=== PATIENT | male | born 1960 | race Caucasian/White ===

== ENCOUNTER 2020-06-11 09:20 | Emergency (ER) | payer SELFPAY ==
[2020-06-11] MEDS ORDERED: Metoclopramide 10 MG/2 ML SDV IVPUSH ONE (09:28)
[2020-06-11] MEDS ORDERED: Aspirin 81 MG Tab.Chew PO ONE (09:28)
[2020-06-11] MEDS ORDERED: fentaNYL 100 MCG/2 ML SDV IVPUSH ONE (09:28)
[2020-06-11] MEDS ORDERED: Sodium Chloride 0.9% 1,000 ML IV SCH (09:30)
[2020-06-11] MEDS ORDERED: Nitroglycerin/D5W 25 MG/250 ML BOTTLE IV SCH (09:30)
--- NOTE | 2020-06-11 09:33 | EDM.PDOC ---
ED HPI GENERAL MEDICAL PROBLEM - General Chief Complaint: Cardiovascular Problem Stated Complaint: POSSIBLE HEART ATTACK Time Seen by Provider: 06/11/20 09:27 Source of Information: Reports: Patient History Limitations: Reports: No Limitations - History of Present Illness INITIAL COMMENTS - FREE TEXT/NARRATIVE: 60-year-old male presents to the ED with crushing central chest pain starting approximately 20 minutes prior to arrival. States he was walking up a flight of stairs when the pain came on. No known history of coronary disease. Strong family history of the same however. He is also got a [id number] history of smoking. Pain does not radiate into his jaw or shoulders. Does feel it in between his shoulder blades in his back. Has never experienced this type of t errible pain before. Rates the pain as 10 out of 10. Onset: Today, Sudden Onset Date: 06/11/20 Onset Time: 09:00 Duration: Minutes:, Constant Location: Reports: Chest Quality: Reports: Ache, Pressure (Few central chest squeezing pressure pain.) Severity: Severe Improves with: Reports: None Worsens with: Reports: None (10 out of 10) Context: Reports: Other (Spontaneous occurrence). Denies: Activity, Exercise, Lifting, Sick Contact, Trauma Associated Symptoms: Reports: Chest Pain, Loss of Appetite, Shortness of Breath. 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) Chest Pain Score (Numeric/FACES): 6 - Related Data Allergies Allergy/AdvReac Type Severity Reaction Status Date / Time No Known Allergies Allergy Verified 06/11/20 09:50 Home Meds: Home Meds Ibuprofen 600 mg PO TID 06/11/20 [History] Past Medical History Cardiovascular History: Reports: Hypertension (Has been off hypertensive medication since September of this year) Social & Family History - Tobacco Use Tobacco Use Status *Q: Current Every Day Tobacco User Tobacco Use Within Last Twelve Months: Cigarettes (1 pack/day) - Living Situation & Occupation Occupation: Employed ED ROS GENERAL - Review of Systems Review Of Systems: See Below Constitutional: Denies: Fever, Chills, Malaise, Weakness, Fatigue, Decreased Appetite, Weight Loss HEENT: Reports: No Symptoms Respiratory: Reports: Shortness of Breath, Wheezing, Cough. Denies: Pleuritic Chest Pain Cardiovascular: Reports: Chest Pain ([place] cough.), Dyspnea on Exertion. Denies: Blood Pressure Problem ( Chest pain this morning see history of present illness), Claudication, Edema, Lightheadedness, Orthopnea Endocrine: Reports: Fatigue (Sometimes.) GI/Abdominal: Reports: No Symptoms : Reports: Frequency, Other Musculoskeletal: Reports: Back Pain, Joint Pain Skin: Reports: No Symptoms (Sips neck at times) Neurological: Reports: No Symptoms Psychiatric: Reports: No Symptoms Hematologic/Lymphatic: Reports: No Symptoms ED EXAM, GENERAL - Physical Exam Exam: See Below Exam Limited By: No Limitations General Appearance: Alert, Moderate Distress (She has an obvious amount of), Other ( significant pain.) Eye Exam: Bilateral Eye: Normal Inspection, PERRL Throat/Mouth: Other. No: Normal Teeth (Pharynx is diffusely erythematous from cigarette smoking.) Head: Atraumatic, Normocephalic Neck: Normal Inspection, Supple, Non-Tender, Full Range of Motion. No: Carotid Bruit, Lymphadenopathy (L), Lymphadenopathy (R) Respiratory/Chest: No Respiratory Distress, Lungs Clear, Normal Breath Sounds, No Accessory Muscle Use Cardiovascular: Normal Peripheral Pulses, Regular Rate, Rhythm, No Edema, No Gallop, No Murmur, No Rub Peripheral Pulses: 2+: Carotid (L), Carotid (R), Posterior Tibial (L), Posterior Tibial (R), Dorsalis Pedis (L), Dorsalis Pedis (R) GI/Abdominal: Normal Bowel Sounds, Soft, Non-Tender, No Organomegaly, No Abnormal Bruit, No Mass, Pelvis Stable, Other (No surgical scars) Back Exam: Normal Inspection, Full Range of Motion. No: CVA Tenderness (L), CVA Tenderness (R) Extremities: Normal Inspection, Normal Range of Motion, Non-Tender, No Pedal Edema Neurological: Alert, Oriented, CN II-XII Intact, Normal Cognition, Normal Gait Psychiatric: Anxious Skin Exam: Warm, Dry, Intact, No Rash (They diaphoretic), Diaphoretic #2 Interpretation EKG Date: 06/11/20 Time: 10:08 Rhythm: NSR Rate (Beats/Min): 68 [place]: LAD-Left [place] Deviation (-58 degrees) P-Wave: Enlarged (Left atrial hypertrophy) QRS: Other (Q waves leads V1 V2 compared with old septal myocardial infarction. Left ventricular hypertrophy pattern.) ST-T: Other (T wave inversion V5 V6 T wave flattening in lead I and aVL nonspecific findings) EKG Interpretation Comments: Normal ECG #5 Interpretation EKG Date: 06/11/20 Time: 09:26 Rhythm: NSR Rate (Beats/Min): 72 [place]: LAD-Left [place] Deviation P-Wave: Enlarged (-56 degrees consider left atrial hypertrophy) QRS: Other (Q waves V1 and V2 compared with an old anteroseptal myocardial infarction left ventricular appear to be pattern) ST-T: Other (Wave flattening 1 and aVL) QT: Normal EKG Interpretation Comments: ECG Course - Vital Signs Last Recorded V/S: Last Vital Signs Temp 35.6 C L 06/11/20 09:20 Pulse 76 06/11/20 09:20 Resp 14 06/11/20 09:20 BP 156/118 H 06/11/20 09:20 Pulse Ox 97 06/11/20 09:20 - Orders/Labs/Meds Labs: Laboratory Tests 06/11/20 06/11/20 06/11/20 Range/Units 09:25 09:25 09:25 WBC 6.01 (4.23-9.07) K/mm3 RBC 4.77 (4.63-6.08) M/mm3 Hgb 15.2 (13.7-17.5) gm/dl Hct 47.4 (40.1-51.0) % MCV 99.4 H (79.0-92.2) fl MCH 31.9 (25.7-32.2) pg MCHC 32.1 L (32.2-35.5) g/dl RDW Std Deviation 47.6 H (35.1-43.9) fL Plt Count 193 (163-337) K/mm3 MPV 11.2 (9.4-12.3) fl Neut % (Auto) 45.0 (34.0-67.9) % Lymph % (Auto) 36.8 (21.8-53.1) % [place] % (Auto) 15.3 H (5.3-12.2) % Eos % (Auto) 2.0 (0.8-7.0) Baso % (Auto) 0.2 (0.1-1.2) % Neut # (Auto) 2.71 (1.78-5.38) K/mm3 Lymph # (Auto) 2.21 (1.32-3.57) K/mm3 [place] # (Auto) 0.92 H (0.30-0.82) K/mm3 Eos # (Auto) 0.12 (0.04-0.54) K/mm3 Baso # (Auto) 0.01 (0.01-0.08) K/mm3 Manual Slide Review Abnormal smear PT 10.6 (9.7-12.0) SECONDS INR 0.99 APTT 25.9 (21.7-31.4) SECONDS D-Dimer, Quantitative (0.19-0.50) mg/L Sodium 139 (136-145) mEq/L Potassium 4.8 (3.5-5.1) mEq/L Chloride 101 (98-107) mEq/L Carbon Dioxide 27 (21-32) mEq/L Anion Gap 15.8 H (5-15) BUN 25 H (7-18) mg/dL Creatinine 1.4 H (0.7-1.3) mg/dL Est Cr Clr Drug Dosing 54.71 mL/min Estimated GFR (MDRD) 51 (>60) mL/min BUN/Creatinine Ratio 17.9 (14-18) Glucose 92 (80-115) mg/dL Calcium 9.7 (8.5-10.1) mg/dL Magnesium 2.1 (1.8-2.4) mg/dl Total Bilirubin 0.6 (0.2-1.0) mg/dL AST 32 (15-37) U/L ALT 37 (16-63) U/L Alkaline Phosphatase 57 (46-116) U/L CK-MB (CK-2) 5.5 H (0-3.6) ng/ml Troponin I < 0.017 (0.00-0.056) ng/mL C-Reactive Protein 0.5 (<1.0) mg/dL NT-Pro-B Natriuret Pep (0-125) pg/mL Total Protein 8.1 (6.4-8.2) g/dl Albumin 4.5 (3.4-5.0) g/dl Globulin 3.6 gm/dL Albumin/Globulin Ratio 1.3 (1-2) Lipase (73-393) U/L 06/11/20 06/11/20 06/11/20 Range/Units 09:25 12:30 12:30 WBC (4.23-9.07) K/mm3 RBC (4.63-6.08) M/mm3 Hgb (13.7-17.5) gm/dl Hct (40.1-51.0) % MCV (79.0-92.2) fl MCH (25.7-32.2) pg MCHC (32.2-35.5) g/dl RDW Std Deviation (35.1-43.9) fL Plt Count (163-337) K/mm3 MPV (9.4-12.3) fl Neut % (Auto) (34.0-67.9) % Lymph % (Auto) (21.8-53.1) % [place] % (Auto) (5.3-12.2) % Eos % (Auto) (0.8-7.0) Baso % (Auto) (0.1-1.2) % Neut # (Auto) (1.78-5.38) K/mm3 Lymph # (Auto) (1.32-3.57) K/mm3 [place] # (Auto) (0.30-0.82) K/mm3 Eos # (Auto) (0.04-0.54) K/mm3 Baso # (Auto) (0.01-0.08) K/mm3 Manual Slide Review PT (9.7-12.0) SECONDS INR APTT (21.7-31.4) SECONDS D-Dimer, Quantitative 0.30 (0.19-0.50) mg/L Sodium (136-145) mEq/L Potassium (3.5-5.1) mEq/L Chloride (98-107) mEq/L Carbon Dioxide (21-32) mEq/L Anion Gap (5-15) BUN (7-18) mg/dL Creatinine (0.7-1.3) mg/dL Est Cr Clr Drug Dosing mL/min Estimated GFR (MDRD) (>60) mL/min BUN/Creatinine Ratio (14-18) Glucose (80-115) mg/dL Calcium (8.5-10.1) mg/dL Magnesium (1.8-2.4) mg/dl Total Bilirubin (0.2-1.0) mg/dL AST (15-37) U/L ALT (16-63) U/L Alkaline Phosphatase (46-116) U/L CK-MB (CK-2) 4.4 H (0-3.6) ng/ml Troponin I < 0.017 (0.00-0.056) ng/mL C-Reactive Protein (<1.0) mg/dL NT-Pro-B Natriuret Pep 294 H (0-125) pg/mL Total Protein (6.4-8.2) g/dl Albumin (3.4-5.0) g/dl Globulin gm/dL Albumin/Globulin Ratio (1-2) Lipase 122 (73-393) U/L Meds: Medications Discontinued Medications Generic Name Dose Route Start Last Admin Trade Name Freq PRN Reason Stop Dose Admin Aspirin 324 mg 06/11/20 09:28 06/11/20 10:08 Aspirin PO 06/11/20 09:29 324 mg ONETIME ONE Administration Fentanyl 50 mcg 06/11/20 09:28 06/11/20 10:05 Sublimaze IVPUSH 06/11/20 09:29 50 mcg ONETIME ONE Administration Sodium Chloride 1,000 mls @ 125 mls/hr 06/11/20 09:30 06/11/20 10:10 Normal Saline IV 125 mls/hr ASDIRECTED YE Administration Nitroglycerin/Dextrose 25 mg in 250 mls @ 6 mls/hr 06/11/20 09:30 06/11/20 10:07 Nitroglycerin 25 Mg/D5w 250 Ml IV 10 mcg/min TITRATE YE 6 mls/hr Administration Protocol 10 MCG/MIN Metoclopramide HCl 7.5 mg 06/11/20 09:28 06/11/20 10:03 Reglan IVPUSH 06/11/20 09:29 7.5 mg ONETIME ONE Administration - Radiology Interpretation Free Text/Narrative:: 60-year-old male presents to the ED with acute onset of severe retrosternal pressure discomfort with slight radiation between his shoulder blades. Pain started approximately 20 to 25 minutes before arriving in the ED. Clinically he appeared to be having a myocardial infarction. The first ECG did not show anything definitive. He will be treated as if he has an TX. Nitroglycerin drip at 10 mcg/min. 4 baby aspirin chewed. Fentanyl 50 mcg IV Reglan 7.5 mg IV. - Re-Assessments/Exams Free Text/Narrative Re-Assessment/Exam: 06/11/20 10:00: Patient is feeling much improved. States his pain is down to 1 out of 10. This report to the nursing staff he has been out of his blood pressure medication since about September of this last year. 06/11/20 10:26 chest x-ray reveals slight interstitial prominence in the right lung base and right perihilar area and laterally due to minimal fibrosis. No pleural effusion no pneumothorax. No cardiomegaly. Prominent right pulmonary artery. Old fracture noted of the left posterior ninth rib.9 06/11/20 11:34 Hematology reveals a normal white count at 6.01. Differential shows 45% neutrophils and 36.8% lymphocytes. Hemoglobin is 15.2 with hematocrit of 47.4 MCV elevated at 99.4. Slide shows adequate platelets mild monocytosis with no bands cells seen. ET is 10.6 with an INR of 0.99. PTT is 25.9. Sodium 139 with a potassium of 4.8 chloride 101 with a bicarb of 27. Anion gap is 15.8. BUN is 25 with a creatinine of 1.4 and a GFR 51. Glucose is 92 with a calcium of 9.7. Magnesium is 2.1 liver function normal CK-MB fraction is 5.5. Troponin I is less than 0.017. C-reactive protein 0.5 BNP 294 total protein 8.1 with an albumin fraction of 4.5. 06/11/20 12:27 she remains pain-free. He remains on the nitroglycerin drip. He will be for repeat cardiac markers that 1230 and 1 more ECG will be completed. 06/11/20 12:51 repeat ECG shows sinus rhythm at 63 bpm. There is left axis deviation of -57 degrees with a left anterior fascicular block pattern. Q waves V1 V2 compatible with old anteroseptal myocardial infarction. There is left ventricular perjury pattern. Diffuse early repolarization pattern. Nonspecific T wave inversion V6 T wave flattening 1 and aVL. No signs of acute ischemia. Of note the QTc interval is mildly prolonged. 06/11/20 13:40 Repeat cardiac markers show CK-MB fraction reduced from 5.5-4.4 and troponin I remains at less than 0.017. Lipase was also normal at 122. Therefore it appears that his chest pain was not related to heart. It is likely that it was due to esophageal spasm and perhaps hiatal hernia as the pain was in the lower retrosternal him and had a spastic type component to the pain. He has been absolutely pain-free for the last 3 hours with 3 normal ECGs. He will be discharged to home. First care physician if any similar problems occur as he may need an EGD. 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 Concern of course was for potential heart attack. Initial ECG did not show any evidence of heart attack. You were treated as such however with 324 mg of aspirin and nitroglycerin drip at 10 mcg/min and fentanyl 50 mcg IV for acute pain relief and and antinauseant. Within 5 to 10 minutes the pain started to ease up and remained pretty well gone for the last 3 hours. You had 3 ECGs done which during her stay in the ED and they are all normal. Lab tests were done x2 to check on heart markers that would be elevated to your bloodstream if any heart muscle damage had occurred in the both came back at 0. Therefore current chest pain today was not related to your heart. It was most likely related to severe spasm of the esophagus or food pipe which lives right behind your heart. It is possible that the small portion of your stomach herniated up into the lower chest through the diaphragm which can cause exactly the same type of pain and mimic heart attack to a Memo. At this time I would not suggest any treatment. However that if similar problem occurs again I would suggest follow-up with a punch press setter for an upper GI scope or endoscopy. Suggest avoiding spicy foods and alcohol for the next few days to allow the food pipe to settle down.
--- NOTE | 2020-06-11 10:21 | CR ---
PROCEDURE INFORMATION: Exam: XR Chest, 1 View Exam date and time: 06/11/2020 9:20 AM Age: 60 years old Clinical indication: Chest pain TECHNIQUE: Imaging protocol: XR of the chest Views: 1 view. COMPARISON: No relevant prior studies available. FINDINGS: Lungs: Slight interstitial prominence in the right lung base laterally could be due to minimal fibrosis, atelectasis or edema . Pleural space: Unremarkable. No pleural effusion. No pneumothorax. Heart/Mediastinum: Unremarkable. No cardiomegaly. Bones/joints: Old fracture left posterior 9th rib IMPRESSION: Slight scarring, atelectasis or edema left lung base laterally Thank you for allowing us to participate in the care of your patient. Dictated and Authenticated by: Vero Ga MD 06/11/2020 11:17 AM Central Time ([place] & [place]) [facility]
== END 2020-06-11 13:50 | disposition home or self-care (01) ==
LOC: JD.ED 09:20 → EDBD 09:20 → JD.ED 13:50
DX: R07.89 Other chest pain (principal); K22.4 Dyskinesia of esophagus; I10 Essential (primary) hypertension; F17.210 Nicotine dependence, cigarettes, uncomplicated
CPT/HCPCS: 36415; 71045; 80053; 82553; 83690; 83735; 83880; 84484; 85025; 85379; 85610; 85730; 86140; 93005; 96365; 96366; 96375; 99285; A9270; J2765; J3010; J3490; J7030; 93010; 99284